=== PATIENT | male | born 1975 | race American Indian/Alaskan Native ===

== ENCOUNTER 2024-05-04 13:38 | Outpatient (CLI) | payer MEDICAID, SELFPAY ==
--- NOTE | 2024-05-04 16:09 | W.CCNOTE ---
Comprehensive Care Clinic Note Note: [facility] [address] [place], [place]? [id number] Initial [facility] Visit Information New or Remote Dx of HIV (1-2 hours) Name: Jens Walker? Date of :? 1975? Primary Care Provider: Unknown, Unknown Date of Service: 05/04/2024 SUBJECTIVE CC: ?We moved here from [place] because the heat and humidity made it hard for me to breath. The sepsis I got when I was diagnosed with HIV killed my lungs and damaged my heart.? Transmission most likely sexual as he is bi-sexual but the last couple decades has had 2 female partners ? his x- and now his current sig other. Neither are HIV positive HPI: Jens was diagnosed with HIV/AIDS in November 2019 after he lost weight going from 215# to 127# in a matter of a few months. He sought medical care, convinced he had cancer but the tests ?showed nothing?. He had thrush, fatigue, and the weight loss, researched is symptoms on line and bought a home HIV test. It was immediately positive. He states he remembers his viral load being over 500,000 and his T cells were in the single digits. He was started in Biktarvy, developed sepsis, was hospitalized and told he had a 1% chance of living the night, had IV therapy and pulled through. He was left with permanent compromise of his lungs, a cardiac valve problem and CAD requiring 4 stents. He says there are more coronary areas that need stenting. He is taking anticoagulant medication, cardiac, lung medications, and the Biktarvy but will run out of these on Thursday, 4 days from now. He was approved for Medicaid but does not have the number as of yet. Jens tells me he cannot read or write. His sig other assists him with this. He can read numbers. ROS Constitutional: Jens fatigues very easily. He has been able to gain weight and states he feels good at rest. Skin: Denies rash or any open lesions, moles, eruptions Head: Prone to headaches after a fall from a roof sustaining a head and neck injury Eyes: readers Ear/Nose/Throat: Denies issues Mouth/Teeth: Has well-fitting full mouth dentures Neck: Chronic neck pain from injury CV: CAD secondary to injury from sepsis, S/P stents. Says he was told he had a bad valve and will need that replaced at some time. Respiratory: Chronic dyspnea w some audible wheezing at times. Has 3 inhalers and rarely uses the rescue inhaler due to it causing a headache. Had pulmonary function tests done in [place] GI: Denies issues, bowels move well, no reflux, chronic N/V/D : Says he has a weaker stream than years ago but no hesitancy or intermittent stream Musculoskeletal: aching in his hands and sometimes his feet but he says he fractured all of these doing [employer] Endocrine: No H/O elevated blood sugar or other endocrine disease Lymphatic: Denies enlarged lymph nodes Hematologic: Denies unusual bleeding even with the anticoagulants. ?I bleed longer if I get a cut?. H/O ?low Red cells?. Immunologic: Says his T cells are above 200 and he is off Bactrim PJP prophylaxis Psychiatric: Denies, depression, SI/HI Allergies/Sensitivities: NKDA Current Medications: Biktarvy 50/200/25 mg tab, 1 daily Clopidogrel 75 mg tab daily Metoprolol ER 25 mg tab bid Eliquis 5 mg tab bid Rosivastatin 20 mg tab daily Losartan 50 mg tab 1 ? = 75 mg daily Spiriva 2.5 mg 2 puffs daily Albuterol 2 puffs prn ?round powder inhaler that you twist? ? is not taking because it causes headache Past medications Ineffective: Hydrocodone - nausea Past Medical History: Other than injuries, he was always healthy until he became ill that was Dx as AIDS. Became septic and sustained cardiac and lung injuries during that illness and is left with CAD, a cardiac valve issue and lung compromise. Old record will be requested from his prior HIV provider who also was his PCP. 2013 fell off a roof with LOC head injury, C spine compression fractures, fractured 2 floating ribs and punctured a lung Past Surgical History: 4 coronary artery stents Past Psychiatric History: Denies Social History: Lives with his sig other, His mother lives in [facility] and has dementia. ?I?m 3 hours away from her and if she needs me I go?. Place of : [place] Gender: M Racial Distribution: Primary Language: Guyanese Secondary Language(s): None Current [facility], State of Residence: [place], [place] Marital Status: Sig other who he considers his Family Size: 2 Pets: dog Housing: owns his home Incarceration History: none History: none Highest Grade Completed: 9 ? Able to read? Denies Employment: None ? 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 Income(s)/Means of Financial Support: Sig other works ? 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 Health Insurance: Approved for [place] Medicaid ? awaiting the number ? Other payment source: self, is applying for VMAP ? Coverage Issues: Needs Medicaid number to be able to get his medications Substance Abuse History: ? Tobacco: smoker ? 1 ppd cigarettes - has reduced from 1 /2 ppd and will reduce more ? ETOH: Denies ? Illicit Drug Use: Denies ? Rx Drug Dependence: None Other Psychosocial Considerations: Needs to apply for disability Family History ? Mother: alive ? age 64, dementia ? Father: ? age 40 ? ?bone cancer? Siblings: ? brother who is ETOHic and drug addicted, homeless in [place]. Does keep in contact with him. ? Children: 2 adult sons, Roberto Carlos 25 yo, Yakov 22 yo. ? Grand Parents: , PGM lung cancer ? Extended: ?cancer ? mostly lung? Immunization History ? Tetanus/TDAP: 7 years ago ? Hepatitis A: ? Hepatitis B: ? Flu Vaccine: refuses ? Pneumovax 23: ? Prevnar 13: ? Singrix: NA ? Menactra: NA ? Health Maintenance: unknown Lipids/Glucose: thinks last checked was 10 months ago ID Screenings ? PPD/Quantiferron: unknown OBJECTIVE Height: 5?6? Weight: 200# Temp: 98.0 Pulse: 68 reg Respirations: 16 Blood Pressure: 124/66 General: WDWNL Skin: clear ? professional tattoos Head: NCAT Eyes: PERRL, non-icteric, non-injected, discs flat Ears/Nose: clear Mouth/Teeth: no lesions, dentures fit well Pharynx: clear Neck: supple CV/Pulses: RRR, no murmur heard, no gallop or rubs, 2/4 in all extremities Chest Lungs: scattered wheezes at the bases Abdomen: NABS, ND, BT, No OGM Extremities: FROM, no edema Musculoskeletal: No deformities Neuro: gait strong and steady, no tremor, tics : NE Rectal: NE Lymphatic: No enlarged node palpable Psychiatric: - appearance: Well groomed - eye contact: good - attitude: cooperative - speech: clear, coherent w normal pressure - affect: normal - mood: euthymic - memory: short term intact, 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 HIV/AIDS ? Blood work drawn today for CBCD, CMP, HIV1 RNA PCR, quantitative, CD4 immunodeficency panel, HBV sAB & c AB, HCV AB. He will sign a DWAIN for old records including lab results. Will call in the medication RXs to [facility] in [place], [place]. I will contact him wit his lab results and the date for F/U. visit scheduled: Will arrange for him to have a visit with Dr. Phan in May Release of Records: form give to be completed and mailed to [place] provider. Social Work/Psychiatry referral: Is connected with [place] [facility] CAD, Lung disease ? Will call in a month of his other medications until he can establish care with a PCP here and get his other medications long-term with F/U and referrals as needed. Provider of Care:? Estefanía Au, MSN, COIL REWIND MACHINE OPERATOR
== END 2024-05-04 13:39 | disposition home or self-care (01) ==
LOC: CCC 13:44
PROVIDERS: Visit Provider Nurse Practitioner Family
DX: B20 Human immunodeficiency virus [HIV] disease (principal); Z79.899 Other long term (current) drug therapy
CPT/HCPCS: 99205

== ENCOUNTER 2024-05-04 14:47 | Outpatient (CLI) | payer MEDICAID, SELFPAY ==
[2024-05-04 13:54] LABS: Abs Immature Grans 0.02 10^3/uL (0.0-0.06); Absolute Basophil Count 0.04 10^3/uL (0.0-0.2); Absolute Eosinophil Count 0.21 10^3/uL (0.0-0.7); Absolute Lymphocyte Count 3.07 10^3/uL (1.2-3.4); Absolute Monocyte Count 0.76 10^3/uL (0.1-0.8); Absolute Neutrophil Count 4.47 10^3/uL (1.2-6.7); Basophils % 0.5 %; Eosinophils % 2.5 %; HCT 44.4 % (40.0-50.0); HGB 15.5 g/dL (13.5-17.5); Immature Grans % 0.2 %; Lymphocytes % 35.8 %; MCH 31.3 pg (27.0-33.0); MCHC 34.9 % (32.0-36.0); MCV 90 fL (80-95); MPV 9.4 fL (8.0-11.0); Monocytes % 8.9 %; Neutrophils % 52.1 %; Platelet Count 228 10^3/uL (130-400); RBC 4.96 10^6/uL (4.36-5.78); RDW 13.5 % (11.8-14.1); RDW-SD 44.2 fL; WBC 8.57 10^3/uL (4.4-10.8)
[2024-05-04 14:30] LABS: ALT 22 U/L (16-63); AST 17 U/L (15-37); Albumin 3.5 g/dL (3.4-5.0); Alkaline Phosphatase 151 U/L (46-116); Anion Gap 8.2 mmol/L (3-11); BUN 9 mg/dL (7-18); Bilirubin, Total 0.23 mg/dL (0.2-1.0); CO2 25.8 mmol/L (21.0-32.0); CREATININE 1.1 mg/dL (0.70-1.30); Calcium 8.7 mg/dL (8.5-10.1); Chloride 105 mmol/L (98-107); Estimated GFR 83.32 (mL/min/1.73m2); Glucose 102 mg/dL (74-106); Sodium 139 mmol/L (136-145); Total Protein 7.6 g/dL (6.4-8.2)
[2024-05-04 23:02] LABS: Hepatitis B Surface Ag Negative (Negative)
[2024-05-04 23:40] LABS: Hep B Core Antibody Negative (Negative)
[2024-05-05 09:48] LABS: Hepatitis C Ab w Rflx HCV PCR Negative (Negative)
[2024-05-05 14:50] LABS: HIV 1 RNA Qualitative Detected Copys/mL (Undetected); HIV 1 RNA Quantitative <20 Copys/mL (Undetected)
[2024-05-05 15:27] LABS: 4/8 Ratio 0.46 (>=0.90); Absolute CD3 2281 Cells/uL (840-2669); Absolute CD8 1569 Cells/uL (154-1097); CD3 75 % (56-84); CD4 24 % (31-64); CD8 52 % (9-39)
== END 2024-05-04 14:48 | disposition home or self-care (01) ==
LOC: LBO 14:49
PROVIDERS: Visit Provider Nurse Practitioner Family
DX: B20 Human immunodeficiency virus [HIV] disease (principal); Z79.899 Other long term (current) drug therapy
CPT/HCPCS: 36415; 80053; 86704; 86803; 87340; 87536; 85025; 86359; 86360

== ENCOUNTER 2024-07-28 08:55 | Outpatient (CLI) | payer MEDICAID, SELFPAY ==
--- NOTE | 2024-07-28 08:45 | RT.EKG_ITS ---
APPROVED REPORT Exam: Resting ECG Reason for Exam: CAD, afib Patient Location: O HR:74 bpm ECG Measurements Heart Rate 74 AXIS MI 149 P 46 QRSd 95 QRS -54 QT 385 T -42 QTc 428 Conclusion Sinus rhythm...normal P axis, V-rate 50- 99 Inferior infarct, age indeterminate...Q>35mS, T neg, II III aVF
== END 2024-07-28 08:56 | disposition home or self-care (01) ==
LOC: DI.CARD 08:56
PROVIDERS: Visit Provider Internal Medicine Cardiovascular Disease
DX: I25.10 Atherosclerotic heart disease of native coronary artery without angina pectoris (principal)
CPT/HCPCS: 93010

== ENCOUNTER 2024-08-11 12:49 | Outpatient (RCR) | payer MEDICAID, SELFPAY | END 2024-09-09 23:59 | disposition home or self-care (01) | LOC: CR 12:49 | PROVIDERS: Visit Provider Internal Medicine Cardiovascular Disease ==

== ENCOUNTER 2024-11-16 13:15 | Emergency (ER) | payer MEDICAID, SELFPAY ==
[2024-11-16] VITALS (10 sets, daily range): BP systolic 130–135; BP diastolic 69–89; PULSE 74–93; RESP 16–20; TEMP 36.7; O2SAT 94–99
--- NOTE | 2024-11-16 14:00 | DI.CT_ITS ---
Exam(s) CT ABDOMEN PELVIS CTA EXAM: CT ABDOMEN PELVIS CTA CLINICAL HISTORY: BRBPR. TECHNIQUE: Imaging Protocol: Axial CT angiography was performed with multi-slice acquisition and m ulti-planar and/or 3D reconstructions. CONTRAST MATERIAL: Intravenous: Omnipaque 350 Contrast volume:100 mL Oral: / no COMPARISON: No exams were available for comparison FINDINGS: Vascular Structures: Celiac [place]:No evidence of stenosis. SMA: No evidence of stenosis. Renal Arteries: No evidence of stenosis. There is a single renal artery perfusing each kidney. Aorta: Irregular calcified and noncalcified plaque beginning below the level of the renal arteries. No aneurysm. No dissection. No significant stenosis. Iliac Arteries: Irregular calcific and noncalcific plaque. Approximate 50 percent stenosis at the or igin of the right common iliac artery. No stenosis on the left. External iliac arteries show scatte red plaque. Common Femoral Arteries: No evidence of stenosis. Soft Tissues:Small bilateral fat containing inguinal hernias. Small amount of fat at the umbilicus. Lung bases:No acute findings. Liver: Normal size. Mild fatty infiltration. No measurable mass. Gallbladder and biliary tract: No evidence of calculi. No gallbladder wall thickening. No biliary di lation. Pancreas: Normal density, no abnormal calcifications or inflammatory process. Spleen: Normal. Kidneys: Normal size, contour and axis. No obstructive uropathy. No masses seen. No evidence of calcu li. Adrenal glands: No masses seen. Bladder: No gross wall thickening. No evidence of calculi. No evidence of mass. Bowel: No obstruction or bowel wall thickening. Appendix normal. Very little stool. No focus of G I bleeding identified. No visible diverticulosis. Peritoneal cavity: No ascites. No focal collection. No mesenteric inflammatory response. Bones: No acute findings. Lymph nodes: Within normal limits. Reproductive: Unremarkable. IMPRESSION: No source of GI bleeding identified. No evidence of bowel wall thickening. No visible diverticulosi s. Atherosclerotic changes of the infrarenal abdominal aorta with proximally 50 percent narrowing of the proximal right common iliac artery. No other significant areas of vascular stenosis. RADIATION DOSE DELIVERED: Total DLP DATA REPOSITORY: All CT scans at this facility are submitted to the National Radiology Data Registry (NRDR) Dose Index Registry (DIR) with the [employer] (ACR). RADIATION OPTIMIZATION: All CT scans at this facility use at least one of these dose optimization te chniques: automated exposure control; mA and/or kV adjustment per patient size (includes targeted exa ms where dose is matched to clinical indication); or iterative reconstruction.
--- NOTE | 2024-11-16 14:16 | ED.GENADUL_ITS ---
Discharge Plan Disposition Patient Disposition: Home Condition: Stable Discharge Details Clinical Impression: BRBPR (bright red blood per rectum) Primary Care Provider: Unknown,Unknown ED Provider: Kimi Jimenez Home Meds and New Rx's Prescriptions: No Action nitroglycerin 0.4 mg tablet, sublingual 0.4 mg sublingual Q5-15M PRN (Reason: chest pain) Qty: 30 4RF Rx Instructions: do not exceed 3 doses per episode aspirin [Adult Aspirin Regimen] 81 mg tablet,delayed release (DR/EC) 81 mg PO DAILY albuterol sulfate [Ventolin HFA] 90 mcg/actuation HFA aerosol inhaler 2 inh inhalation Q6H PRN (Reason: shortness of breath or wheezing) Qty: 8.5 6RF Eliquis 5 mg tablet 5 mg PO BID Qty: 180 3RF clopidogrel 75 mg tablet 75 mg PO DAILY Qty: 90 3RF losartan 50 mg tablet 75 mg PO DAILY Qty: 120 6RF metoprolol succinate 25 mg tablet extended release 24 hr 25 mg PO BID Qty: 180 3RF rosuvastatin [Crestor] 40 mg tablet 40 mg PO DAILY Qty: 90 3RF Biktarvy 50-200-25 mg tablet 1 tab PO DAILY imiquimod 5 % cream in packet 1 applic topical 5XW Spiriva Respimat 2.5 mcg/actuation mist 2 puff inhalation DAILY Zyrtec 10 mg capsule 10 mg PO DAILY PRN Discharge Instructions Instructions: Bloody Stools, Adult ED Additional Instructions: You were seen in the emergency department today for evaluation of bleeding from your rectum. In our department he had a full physical examination performed, had laboratory studies that were reassuring and did not show any sign of anemia or damage to your heart or other organs. Your CT scan today did not show any active ongoing GI bleeding, and was otherwise reassuring. You need to have a colonoscopy performed and this will be done in the outpatient environment. Please contact the general surgery clinic today or early tomorrow to schedule this appointment. You can come back to the emergency department if you have sudden change or worsening of your bleeding, develop chest pain, dizziness, loss of consciousness, or any other symptoms that cause you concern. Thank you for allowing us to be part of your care. Referrals: Aubrey Duvall MD [ [facility] STAFF PHYSICIAN] - [facility] General Mode of arrival: ambulatory . Date/Time Provider Initiated Documentation: 11/16/24 13:37 . Limitations to Documentation: no limitations . Information obtained by: patient, family and old records reviewed . HPI Narrative: HPI: This is a 49-year-old male patient with a past medical history significant for coronary artery disease status post numerous stents, COPD, hypertension, hyperlipidemia, atrial fibrillation on Eliquis, and a history of HIV with undetectable viral loads on HAART. He is presenting for evaluation of 6 months of worsening bright red blood per rectum. He reports that over the last 6 months he has had intermittent bleeding from his rectum, this will occur intermittently and then resolved for several days. It is painless, associated with feelings of fatigue and shortness of breath when it occurs. The patient reports that he has had worsening of his rectal bleeding, with large volume and clots. He has a sensation that he needs to stool and will pass only blood and clots. It is bright red, remains painless that he has noted some abdominal bloating. He is most concerned about colon cancer, as he has noted changes in the size of his stool that are now very narrow and short like Tootsie Roll's. He states that he has never had a colonoscopy, has been taking all of his blood thinners and medications as prescribed, does feel slightly winded and fatigued. He is not experiencing any pain, has not had fevers, nausea or vomiting, or dysuria. Exam: Gen: Awake and alert, in no apparent distress HEENT: Non-icteric sclera Neck: Supple Lungs: No apparent respiratory distress, normal respiratory effort. CV: Appears well perfused, heart with regular rate and rhythm, strong distal pu lses Abdomen: Non-distended, nontender to palpation without rigidity, rebound, or guarding Rectal: Exam performed under the supervision of ZENA Andrade, revealing a nonthrombosed external hemorrhoid, a very small amount of bright red blood on the tip of the glove, no melena, no palpable internal hemorrhoids or masses. MSK: Moves 4 extremities without apparent limitation in ROM Skin: Visualized skin without rashes, cyanosis. Neuro: Normal Gait, no obvious focal deficits or facial asymmetry. Speaks in full, clear sentences. Psych: Appropriate for situation. MDM: This is a 49-year-old male patient presenting for evaluation of bright red blood per rectum. My differential includes but is not limited to internal hemorrhoid, colon cancer, diverticulosis, AVM, coagulopathy/medication effect, anemia, dehydration, kidney injury, metabolic derangement. The patient has no abdominal pain to significantly increase my concern for mesenteric ischemia, gastritis/PUD. He has no fevers and no veils in the home is sick, and he is well-controlled on his HIV medication and I have a lower concern for infectious or pathogenic diarrhea/dysentery. We will obtain laboratory studies to include CBC, CMP, magnesium, troponin, INR, lactate, and type and screen. I will obtain a CTA of the abdomen and pelvis. ED Course: I independently interpreted the laboratory studies, which show no significant leukocytosis, anemia, or thrombocytopenia. The chemistry panel is without evidence of electrolyte abnormality, kidney dysfunction, or liver injury. INR is not elevated, lactate is low, troponin negative and without delta change on 1 hour recheck. I reviewed the patient's CT scan, as well as the radiology read which shows no evidence of active GI bleeding, diverticulosis, large mass, or other abnormalities. I did reach out to general surgery as I do feel that this patient would benefit from expedited colonoscopy, and they will ensure that he is put on the schedule in the outpatient environment. At this time, the patient has had a full medical evaluation and is safe for discharge to home. They are hemodynamically stable, ambulatory, and tolerating PO. They are understanding of the follow-up plan and return precautions. They left our facility without incident. Kimi Jimenez MD Related Data Home Medications ?Medication ?Instructions ?Recorded ?Confirmed bictegravir 50 mg-emtricitabine 1 tab PO DAILY 07/14/24 11/16/24 200 mg-tenofovir alafenam 25 mg tablet (Biktarvy) cetirizine 10 mg capsule (Zyrtec) 10 mg PO DAILY PRN 07/14/24 11/16/24 imiquimod 5 % topical cream packet 1 applic topical 5XW 07/14/24 11/16/24 tiotropium bromide 2.5 2 puff inhalation DAILY 07/14/24 11/16/24 mcg/actuation mist for inhalation (Spiriva Respimat) albuterol sulfate 90 mcg/actuation 2 inh inhalation Q6H PRN shortness 07/28/24 11/16/24 aerosol inhaler (Ventolin HFA) of breath or wheezing #8.5 grams apixaban 5 mg tablet (Eliquis) 5 mg PO BID #180 tabs 07/28/24 11/16/24 aspirin 81 mg tablet,delayed 81 mg PO DAILY 07/28/24 11/16/24 release (Adult Aspirin Regimen) clopidogrel 75 mg tablet 75 mg PO DAILY #90 tabs 07/28/24 11/16/24 losartan 50 mg tablet 75 mg (1.5 x 50 mg) PO DAILY #120 07/28/24 11/16/24 tabs metoprolol succinate 25 mg 25 mg PO BID #180 tabs 07/28/24 11/16/24 tablet,extended release 24 hr rosuvastatin 40 mg tablet (Crestor) 40 mg PO DAILY #90 tabs 07/28/24 11/16/24 nitroglycerin 0.4 mg sublingual 0.4 mg sublingual Q5-15M PRN chest 10/27/24 11/16/24 tablet pain #30 tabs Previous Rx's ?Medication ?Instructions ?Recorded albuterol sulfate 90 mcg/actuation 2 inh inhalation Q6H PRN shortness 07/28/24 aerosol inhaler (Ventolin HFA) of breath or wheezing #8.5 grams apixaban 5 mg tablet (Eliquis) 5 mg PO BID #180 tabs 07/28/24 clopidogrel 75 mg tablet 75 mg PO DAILY #90 tabs 07/28/24 losartan 50 mg tablet 75 mg (1.5 x 50 mg) PO DAILY #120 07/28/24 tabs metoprolol succinate 25 mg 25 mg PO BID #180 tabs 07/28/24 tablet,extended release 24 hr rosuvastatin 40 mg tablet (Crestor) 40 mg PO DAILY #90 tabs 07/28/24 nitroglycerin 0.4 mg sublingual 0.4 mg sublingual Q5-15M PRN chest 10/27/24 tablet pain #30 tabs Allergies Allergy/AdvReac Type Severity Reaction Status Date / Time No Known Allergies Allergy Verified 11/16/24 13:37 General Stated Complaint: Abd Prob GIACOMO: 3 Course Vital Signs Vital signs: Vital Signs Temperature 36.7 C 11/16/24 13:32 Pulse 93 H 11/16/24 13:32 Respiratory Rate 20 11/16/24 13:32 Blood Pressure 135/89 11/16/24 13:32 Pulse Oximetry 94 11/16/24 13:32 Temperature 36.7 C 11/16/24 14:04 Temperature Source Tympanic 11/16/24 14:04 Pulse 93 H 11/16/24 14:04 Respiratory Rate 20 11/16/24 14:04 Blood Pressure 135/89 11/16/24 14:04 Pulse Oximetry 94 11/16/24 14:04 Oxygen Delivery Method Room Air 11/16/24 14:04 Oxygen Flow Rate 0 11/16/24 14:04 Pain Level 0 11/16/24 14:04 Medical Decision Making Quality:SDOH Health Related Social Needs: No Data to Display PFSH All Active Problems (Updated 11/16/24 @ 16:29 by Kimi Jimenez MD) BRBPR (bright red blood per rectum) (Acute) ST elevation (STEMI) myocardial infarction involving right coronary artery (Acute) 06/23/24 at [facility] stenting to RCA RH COPD (chronic obstructive pulmonary disease) (Chronic) Emphysema lung (Acute) Unstable angina (Acute) Hyperlipidemia (Acute) Hypertension (Chronic) Persistent cough (Acute) Human immunodeficiency virus (HIV) (Acute) 10/16/2020 Dyspnea on exertion (Acute) Chronic hypoxemic respiratory failure (Acute) Reactive airway disease (Acute) Allergic rhinitis (Acute) Smoker (Acute) Afib (Chronic) CAD (coronary artery disease) (Chronic) Medical History Myocardial infarct, old 2019 Family History Father Malignant neoplasm of lung Malignant neoplasm of bone Mother Chronic obstructive lung disease Smoker Social History Smoking/Tobacco Use Status: Current every day Tobacco Type: cigarettes Smoking packs per day: 1 Smoking cigarettes per day: 20.0 Years smoked: 30 Smoking pack- years: 30.00 Tobacco: How many years used: 15 Smoking risk assessment performed?: Yes Alcohol Intake: never Drug use: Never Household members: family Number of Children: 2 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
[2024-11-16 14:24] LABS: Abs Immature Grans 0.03 10^3/uL (0.0-0.06); Absolute Basophil Count 0.05 10^3/uL (0.0-0.2); Absolute Eosinophil Count 0.19 10^3/uL (0.0-0.7); Absolute Lymphocyte Count 3.47 10^3/uL (1.2-3.4); Absolute Monocyte Count 0.82 10^3/uL (0.1-0.8); Absolute Neutrophil Count 3.73 10^3/uL (1.2-6.7); Basophils % 0.6 %; Eosinophils % 2.3 %; HCT 47.4 % (40.0-50.0); HGB 16.2 g/dL (13.5-17.5); Immature Grans % 0.4 %; Lactate 1.4 mmol/L (<or=2.0); Lymphocytes % 41.9 %; MCH 30.6 pg (27.0-33.0); MCHC 34.2 % (32.0-36.0); MCV 89 fL (80-95); MPV 9.6 fL (8.0-11.0); Monocytes % 9.9 %; Neutrophils % 44.9 %; Platelet Count 235 10^3/uL (130-400); RDW 13.5 % (11.8-14.1); RDW-SD 44.2 fL; WBC 8.29 10^3/uL (4.4-10.8)
[2024-11-16 14:34] LABS: Bilirubin Negative (Negative); Blood Negative (Negative); Clarity Clear (Clear); Glucose Negative (Negative); Ketones Negative (Negative); Leukocyte Esterase Negative (Negative); Nitrite Negative (Negative); Specific Gravity <= 1.005 (1.005-1.025); Urobilinogen 0.2 mg/dL (Up to 0.2); pH 5.5 (5-8)
[2024-11-16 14:35] LABS: INR 1.1 (0.9-1.1); Prothrombin Time 10.6 sec (9.1-11.1)
[2024-11-16 14:46] LABS: ALT 36 U/L (16-63); AST 25 U/L (15-37); Albumin 3.8 g/dL (3.4-5.0); Alkaline Phosphatase 155 U/L (46-116); Anion Gap 8.3 mmol/L (3-11); BUN 7 mg/dL (7-18); Bilirubin, Total 0.3 mg/dL (0.2-1.0); CO2 28.7 mmol/L (21.0-32.0); CREATININE 1.1 mg/dL (0.70-1.30); Calcium 9.6 mg/dL (8.5-10.1); Chloride 105 mmol/L (98-107); Estimated GFR 82.81 (mL/min/1.73m2); Glucose 85 mg/dL (74-106); Lipase 40 U/L (<78); Magnesium 1.9 mg/dL; Potassium 3.8 mmol/L (3.5-5.1); Sodium 142 mmol/L (136-145); Total Protein 8.2 g/dL (6.4-8.2); Troponin I 18 ng/L (<or=76)
[2024-11-16 15:43] LABS: Troponin I 20 ng/L (<or=76)
[2024-11-16] MEDS: Normal Saline - Diluent 50 ML VIAL IJ (15:50)
[2024-11-16] MEDS: Omnipaque 350 MG/ML 100 ML BTL IJ (15:51)
== END 2024-11-16 16:34 | disposition home or self-care (01) ==
PROVIDERS: Emergency Provider Emergency Medicine
DX: K62.5 Hemorrhage of anus and rectum (principal); Z79.01 Long term (current) use of anticoagulants
CPT/HCPCS: 36415; 80053; 83690; 86850; 86900; 86901; 99285; 74174; 81003; 83605; 83735; 84484; 85025; 85610; 99283; J3490

== ENCOUNTER 2024-11-25 10:54 | Outpatient (CLI) | payer MEDICAID, SELFPAY ==
[2024-11-25 10:55] LABS: Abs Immature Grans 0.04 10^3/uL (0.0-0.06); Absolute Basophil Count 0.05 10^3/uL (0.0-0.2); Absolute Eosinophil Count 0.18 10^3/uL (0.0-0.7); Absolute Lymphocyte Count 2.72 10^3/uL (1.2-3.4); Absolute Neutrophil Count 5.56 10^3/uL (1.2-6.7); Basophils % 0.5 %; Eosinophils % 1.9 %; HCT 45.5 % (40.0-50.0); HGB 15.4 g/dL (13.5-17.5); Immature Grans % 0.4 %; Lymphocytes % 28.8 %; MCH 30.5 pg (27.0-33.0); MCHC 33.8 % (32.0-36.0); MCV 90 fL (80-95); MPV 9.5 fL (8.0-11.0); Monocytes % 9.5 %; Neutrophils % 58.9 %; Platelet Count 213 10^3/uL (130-400); RBC 5.05 10^6/uL (4.36-5.78); RDW 13.9 % (11.8-14.1); RDW-SD 45.7 fL; WBC 9.45 10^3/uL (4.4-10.8)
[2024-11-25 11:19] LABS: ALT 30 U/L (16-63); AST 22 U/L (15-37); Albumin 3.5 g/dL (3.4-5.0); Alkaline Phosphatase 132 U/L (46-116); Anion Gap 9.1 mmol/L (3-11); BUN 9 mg/dL (7-18); Bilirubin, Total 0.4 mg/dL (0.2-1.0); CO2 24.9 mmol/L (21.0-32.0); CREATININE 1.1 mg/dL (0.70-1.30); Calcium 9.2 mg/dL (8.5-10.1); Chloride 107 mmol/L (98-107); Estimated GFR 82.81 (mL/min/1.73m2); Glucose 92 mg/dL (74-106); Potassium 4.2 mmol/L (3.5-5.1); Sodium 141 mmol/L (136-145); Total Protein 7.7 g/dL (6.4-8.2)
[2024-11-28 12:37] LABS: 4/8 Ratio 0.48 (>=0.90); Absolute CD3 2035 Cells/uL (840-2669); Absolute CD8 1385 Cells/uL (154-1097); CD3 71 % (56-84); CD4 23 % (31-64); CD8 48 % (9-39)
[2024-11-28 12:51] LABS: HIV 1 RNA Qualitative Detected Copys/mL (Undetected); HIV 1 RNA Quantitative 32 Copys/mL (Undetected)
== END 2024-11-25 10:55 | disposition home or self-care (01) ==
PROVIDERS: PCP Family Medicine; Visit Provider Nurse Practitioner Family
DX: B20 Human immunodeficiency virus [HIV] disease (principal); Z79.899 Other long term (current) drug therapy
CPT/HCPCS: 36415; 80053; 87536; 85025; 86359; 86360

== ENCOUNTER 2024-12-08 20:22 | Emergency (ER) | payer MEDICAID, SELFPAY ==
[2024-12-08] VITALS (7 sets, daily range): BP systolic 93–145; BP diastolic 52–94; PULSE 74–84; RESP 11–23; TEMP 36.4; O2SAT 89–98
--- NOTE | 2024-12-08 20:15 | RT.EKG_ITS ---
APPROVED REPORT Exam: Resting ECG Reason for Exam: chest pain Patient Location: E HR:84 bpm ECG Measurements Heart Rate 84 AXIS ME 161 P 35 QRSd 100 QRS -55 QT 368 T 13 QTc 436 Conclusion Sinus rhythm...normal P axis, V-rate 60- 99 Inferior infarct, old...Q >35mS, II III aVF
--- NOTE | 2024-12-08 20:29 | ED.GENADUL_ITS ---
Discharge Plan Disposition Patient Disposition: Home Condition: Stable Discharge Details Clinical Impression: Chest pain of uncertain etiology, Bronchitis Primary Care Provider: Hiren Roman ED Provider: Hector Romero Home Meds and New Rx's Prescriptions: New azithromycin 250 mg tablet 250 mg PO DAILY 4 Days Qty: 4 0RF Rx Instructions: start on day 2 of therapy amoxicillin-pot clavulanate 875-125 mg tablet 1 tab PO BID 5 Days Qty: 9 0RF Continued nitroglycerin 0.4 mg tablet, sublingual 0.4 mg sublingual Q5-15M PRN (Reason: chest pain) Qty: 30 4RF Rx Instructions: do not exceed 3 doses per episode aspirin [Adult Aspirin Regimen] 81 mg tablet,delayed release (DR/EC) 81 mg PO DAILY albuterol sulfate [Ventolin HFA] 90 mcg/actuation HFA aerosol inhaler 2 inh inhalation Q6H PRN (Reason: shortness of breath or wheezing) Qty: 8.5 6RF Eliquis 5 mg tablet 5 mg PO BID Qty: 180 3RF clopidogrel 75 mg tablet 75 mg PO DAILY Qty: 90 3RF losartan 50 mg tablet 75 mg PO DAILY Qty: 120 6RF metoprolol succinate 25 mg tablet extended release 24 hr 25 mg PO BID Qty: 180 3RF rosuvastatin [Crestor] 40 mg tablet 40 mg PO DAILY Qty: 90 3RF Biktarvy 50-200-25 mg tablet 1 tab PO DAILY imiquimod 5 % cream in packet 1 applic topical 5XW Spiriva Respimat 2.5 mcg/actuation mist 2 puff inhalation DAILY Zyrtec 10 mg capsule 10 mg PO DAILY PRN Discharge Instructions Instructions: Azithromycin (Systemic), Amoxicillin and Clavulanate, Chest Pain, Adult ED Additional Instructions: You were seen in the emergency department for your chest pain onset last night with 6 out of 10 pressure reported improved this morning, your EKG shows no signs of ischemia, your cardiac workup is negative, your chest x-ray shows bronchitis which we are going to treat with antibiotics, it is likely that you could have been having some demand ischemia or in layman's terms your heart is asking for more oxygen than it is getting. 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 Referrals: [facility] [Provider Group] Hiren Roman MD [Primary Care Provider] - [facility] General Date/Time Provider Initiated Documentation: 12/08/24 20:29 . HPI Narrative: 49 year-old male presents to ED today by POV/ambulating with his with a chief complaint of chest pressure/heaviness with onset last night- rated 6/10 last night, persistent all day today to a 2-3. Quality described as chest pressure, denies overt pain, endorses a cough lately, no radiation to hem optysis, fever, diaphoresis, dizziness, endorsed some abnormal breathing but not short on breath, denies radiation to jaw/neck/arm. Severity is described as 2- 3/10. Palliating factors include did not try his nitroglycerin, took a 81mg aspirin today. Provoking factors include nothing specific- was sleeping at onset. Events leading up to the incident/Associated Symptoms: Patient has seen [facility], just moved to the area this year from [place]. Patient is anticoagulated. Related Data Home Medications ?Medication ?Instructions ?Recorded ?Confirmed bictegravir 50 mg-emtricitabine 1 tab PO DAILY 07/14/24 12/08/24 200 mg-tenofovir alafenam 25 mg tablet (Biktarvy) cetirizine 10 mg capsule (Zyrtec) 10 mg PO DAILY PRN 07/14/24 12/08/24 imiquimod 5 % topical cream packet 1 applic topical 5XW 07/14/24 12/08/24 tiotropium bromide 2.5 2 puff inhalation DAILY 07/14/24 12/08/24 mcg/actuation mist for inhalation (Spiriva Respimat) albuterol sulfate 90 mcg/actuation 2 inh inhalation Q6H PRN shortness 07/28/24 12/08/24 aerosol inhaler (Ventolin HFA) of breath or wheezing #8.5 grams apixaban 5 mg tablet (Eliquis) 5 mg PO BID #180 tabs 07/28/24 12/08/24 aspirin 81 mg tablet,delayed 81 mg PO DAILY 07/28/24 12/08/24 release (Adult Aspirin Regimen) clopidogrel 75 mg tablet 75 mg PO DAILY #90 tabs 07/28/24 12/08/24 losartan 50 mg tablet 75 mg (1.5 x 50 mg) PO DAILY #120 07/28/24 12/08/24 tabs metoprolol succinate 25 mg 25 mg PO BID #180 tabs 07/28/24 12/08/24 tablet,extended release 24 hr rosuvastatin 40 mg tablet (Crestor) 40 mg PO DAILY #90 tabs 07/28/24 12/08/24 nitroglycerin 0.4 mg sublingual 0.4 mg sublingual Q5-15M PRN chest 10/27/24 12/08/24 tablet pain #30 tabs amoxicillin 875 mg-potassium 1 tab PO BID 5 days #9 tabs 12/08/24 clavulanate 125 mg tablet azithromycin 250 mg tablet 250 mg PO DAILY 4 days #4 tabs 12/08/24 Previous Rx's ?Medication ?Instructions ?Recorded albuterol sulfate 90 mcg/actuation 2 inh inhalation Q6H PRN shortness 07/28/24 aerosol inhaler (Ventolin HFA) of breath or wheezing #8.5 grams apixaban 5 mg tablet (Eliquis) 5 mg PO BID #180 tabs 07/28/24 clopidogrel 75 mg tablet 75 mg PO DAILY #90 tabs 07/28/24 losartan 50 mg tablet 75 mg (1.5 x 50 mg) PO DAILY #120 07/28/24 tabs metoprolol succinate 25 mg 25 mg PO BID #180 tabs 07/28/24 tablet,extended release 24 hr rosuvastatin 40 mg tablet (Crestor) 40 mg PO DAILY #90 tabs 07/28/24 nitroglycerin 0.4 mg sublingual 0.4 mg sublingual Q5-15M PRN chest 10/27/24 tablet pain #30 tabs amoxicillin 875 mg-potassium 1 tab PO BID 5 days #9 tabs 12/08/24 clavulanate 125 mg tablet azithromycin 250 mg tablet 250 mg PO DAILY 4 days #4 tabs 12/08/24 Allergies Allergy/AdvReac Type Severity Reaction Status Date / Time No Known Allergies Allergy Verified 11/16/24 13:37 General Stated Complaint: Chest Pain GIACOMO: 3 Review of Systems All systems reviewed & are unremarkable except as noted in HPI and below Exam Narrative Exam Narrative: GENERAL APPEARANCE: Well-nourished, non-toxic, awake and alert, atraumatic, no acute distress. SKIN: Warm, pink, dry, intact, without rashes/lesions/ulcerations. HEAD: Normocephalic, atraumatic, normal hair distribution for gender/age. EYES: Normal conjunctiva, no exudates on lids/lashes. ENT: Nares patent, no circumoral cyanosis, no facial swelling NECK: Supple, trachea midline, painless cervical ROM. LUNGS/CHEST: Lungs CTA bilaterally -no rhonchi/rales/wheezes diffusely, non- labored respirations, normal A/P diameter, symmetrical expansion, no chest wall deformity HEART (CV/PV): Regular rate and rhythm without murmur, no peripheral edema, no JVD. ABDOMEN: Soft, non-distended, no guarding, no tenderness, no CVA tenderness to percussion bilaterally. MSK: Normal ROM, no swelling/deformity to bilateral UEs or LEs, moving all extremities without weakness, no cyanosis, spine midline without tenderness, normal curvature. NEURO: Mental Status AAOx4 - alert to person, place, time, events No facial droop, no forehead involvement. Motor: No focal weakness - strength 5/5 in bilateral UEs and LEs, proximal and distal, symmetric. Sensory: sensation intact to light touch globally. Gait normal: patient ambulated without ataxia into ED room. PSYCH: euthymic, cooperative, pleasant, appropriate speech Course Vital Signs Vital signs: Vital Signs Temperature 36.4 C 12/08/24 20:24 Pulse 84 12/08/24 20:24 Respiratory Rate 16 12/08/24 20:24 Blood Pressure 138/94 H 12/08/24 20:24 Pulse Oximetry 98 12/08/24 20:24 Temperature 36.4 C 12/08/24 20:24 Pulse 84 12/08/24 20:24 Respiratory Rate 16 12/08/24 20:24 Blood Pressure 138/94 H 12/08/24 20:24 Pulse Oximetry 98 12/08/24 20:24 Pain Level 3 12/08/24 20:24 Medical Decision Making This dictation utilizes [id number] dictation software and may contain unedited grammatical errors. 49 year-old male presents to ED today by POV/ambulating with his with a chief complaint of chest pressure/heaviness with onset last night- rated 6/10 last night, persistent all day today to a 2-3. Quality described as chest pressure, denies overt pain, endorses a cough lately, no radiation to hemoptysis, fever, diaphoresis, dizziness, endorsed some abnormal breathing but not short on breath, denies radiation to jaw/neck/arm. Severity is described as 2-3/10. Palliating factors include did not try his nitroglycerin, took a 81mg aspirin today. Provoking factors include nothing specific- was sleeping at onset. Events leading up to the incident/Associated Symptoms: Patient has seen [facility], just moved to the area this year from [place]. Patients' medical history: Myocardial infarction, history of STEMI in June 2024, COPD, emphysema, hypertension, HIV, chronic respiratory failure, A-fib, coronary artery disease. Family and social history: Noncontributory. Pertinent exam findings / vital signs include benign cardiopulmonary exam, neuro intact, benign abdomen. Differential / pathologies of concern include ACS, angina, PE, bronchitis, pleurisy. Diagnostic studies of: -CBC, CMP, D-dimer, troponin, BNP, lipase, EKG, chest x-ray. - CBC shows no leukocytosis, no anemia - CMP shows no actionable abnormality - D-dimer is 514, years criteria negative, - troponin negative - BNP negative - lipase negative - EKG shows normal sinus rhythm without ST changes, slight left axis deviation, good R wave progression -Chest x-ray shows bronchitis Interventions of: -Given 243 mg chewable ASA and nitro with improvement, unsure if it was related to these medications versus just time in the ER, given starting dose of Augmentin and azithromycin with Rx is sent. ED Course/Assessment/Plan: 49-year-old male presents with chest heaviness since last night, he has significant cardiac history as well as HIV and COPD, he endorses a cough lately, his pain was 6 out of 10 last night is unclear why he did not present at that time. His cardiac workup is negative but his heart score is moderate I did discuss with him possibly admitting him for observation but he prefers to go home and follow-up outpatient. Troponin is negative with reliable onset, chest x-ray shows bronchitis, D-dimer is 5.4 but years criteria negative not warranting CTA he is anticoagulated. EKG is reassuring, I counseled the patient on strict return criteria whenever he has these types of chest heaviness symptoms especially shortness of breath, feelings of near syncope or diaphoresis. Findings not consistent with acute AZ, PE, heart failure, pancreatitis, pne umonia or hypoxic respiratory failure. Disposition of Chest Pain of Uncertain Etiology, Bronchitis. Patient verbalized understanding of the plan and return to ED criteria and engaged in shared decision making. Medical Records Medical records reviewed: Yes I reviewed the patient's medical records. Imaging Data Radiologic Study: Attestation: I personally reviewed and interpreted this imaging study as follows: Imaging: X-Ray Radiologist's impression: Exam: XR Chest Exam date and time: 12/08/2024 21:01 Age: 49 years old Clinical indication: Pain; Chest pressure TECHNIQUE: Imaging protocol: Radiologic exam of the chest. Views: 2 views. COMPARISON: CT ABDOMEN PELVIS CTA 11/16/2024 15:43 FINDINGS: Lungs: Mild central interstitial thickening. No airspace consolidation. Pleural spaces: No pleural effusion. No pneumothorax. Heart/Mediastinum: No cardiomegaly. Bones/joints: No acute fracture. IMPRESSION: Interstitial disease suggesting bronchitis. Dictated and Authenticated by: Tayler Ladd MD. Lab Data Lab results reviewed: Yes I reviewed the patient's lab results. Labs: Laboratory Tests Range/Units 12/08/24 20:40 WBC (4.4-10.8) 10^3/uL 9.49 RBC (4.36-5.78) 10^6/uL 4.89 Hgb (13.5-17.5) g/dL 15.2 Hct (40.0-50.0) % 44.2 MCV (80-95) fL 90 MCH (27.0-33.0) pg 31.1 MCHC (32.0-36.0) % 34.4 RDW (11.8-14.1) % 13.8 Plt Count (130-400) 10^3/uL 243 MPV (8.0-11.0) fL 9.6 Immature Gran % % 0.4 Neutrophils % % 49.1 Lymphocytes % % 36.9 Monocytes % % 10.7 Eosinophils % % 2.2 Basophils % % 0.7 Nucleated RBC % (0.0-0.3) % 0.0 Absolute Neutrophils (1.2-6.7) 10^3/uL 4.65 Absolute Lymphocytes (1.2-3.4) 10^3/uL 3.50 H Absolute Monocytes (0.1-0.8) 10^3/uL 1.02 H Absolute Eosinophils (0.0-0.7) 10^3/uL 0.21 Absolute Basophils (0.0-0.2) 10^3/uL 0.07 D-Dimer (<500) ng/mlFEU 514 H Sodium (136-145) mmol/L 136 Potassium (3.5-5.1) mmol/L 4.0 Chloride (98-107) mmol/L 102 Carbon Dioxide (21.0-32.0) mmol/L 27.2 Anion Gap (3-11) mmol/L 6.8 BUN (7-18) mg/dL 13 Creatinine (0.70-1.30) mg/dL 1.2 Est GFR (CKD-EPI 2020) (mL/min/1.73m2) 74.60 Glucose (74-106) mg/dL 105 Calcium (8.5-10.1) mg/dL 9.1 Total Bilirubin (0.2-1.0) mg/dL 0.4 AST (15-37) U/L 36 ALT (16-63) U/L 30 Alkaline Phosphatase (46-116) U/L 155 H Troponin I (<or=76) ng/L 15 NT-Pro-B Natriuret Pep (<300) pg/mL 91 Total Protein (6.4-8.2) g/dL 7.8 Albumin (3.4-5.0) g/dL 3.7 Lipase (<78) U/L 67 Quality:[facility] Health Related Social Needs: No Data to Display PFSH All Active Problems (Updated 12/08/24 @ 21:55 by SHOAIB Hernadez) Bronchitis (Acute) Chest pain of uncertain etiology (Acute) BRBPR (bright red blood per rectum) (Acute) ST elevation (STEMI) myocardial infarction involving right coronary artery (Acute) 06/23/24 at [facility] stenting to RCA RH COPD (chronic obstructive pulmonary disease) (Chronic) Emphysema lung (Acute) Unstable angina (Acute) Hyperlipidemia (Acute) Hypertension (Chronic) Persistent cough (Acute) Human immunodeficiency virus (HIV) (Acute) 10/16/2020 Dyspnea on exertion (Acute) Chronic hypoxemic respiratory failure (Acute) Reactive airway disease (Acute) Allergic rhinitis (Acute) Smoker (Acute) Afib (Chronic) CAD (coronary artery disease) (Chronic) Medical History Myocardial infarct, old 2019 Family History Father Malignant neoplasm of lung Malignant neoplasm of bone Mother Chronic obstructive lung disease Smoker Social History Smoking/Tobacco Use Status: Current every day Tobacco Type: cigarettes Smoking packs per day: 1 Smoking cigarettes per day: 20.0 Years smoked: 30 Smoking pack- years: 30.00 Tobacco: How many years used: 15 Smoking risk assessment performed?: Yes Alcohol Intake: never Drug use: Never Household members: family Number of Children: 2 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 Do you feel safe at home: Yes Do you feel safe in your relationship?: Yes
--- NOTE | 2024-12-08 20:45 | DI.RAD_ITS ---
Exam(s) XR CHEST 2V PA LATERAL EXAM: XR CHEST 2V PA LATERAL CLINICAL HISTORY: chest pressure TECHNIQUE: 2D digital imaging was performed. Two views. COMPARISON: No exams were available for comparison FINDINGS: HEART: Normal size. Coronary artery stent Aorta: Not dilated. PULMONARY VASCULATURE: Normal. MEDIASTINUM: Unremarkable. LUNGS: No focal area of consolidation. Mild peribronchial thickening could indicate bronchitis. PLEURAL SPACE: No pleural effusion or pneumothorax. BONE:Unremarkable for age. SOFT TISSUES: Unremarkable. IMPRESSION: Peribronchial thickening could indicate bronchitis. No focal pneumonia. DATA REPOSITORY: RADIATION DOSE DELIVERED:
[2024-12-08 21:00] LABS: Abs Immature Grans 0.04 10^3/uL (0.0-0.06); Absolute Basophil Count 0.07 10^3/uL (0.0-0.2); Absolute Eosinophil Count 0.21 10^3/uL (0.0-0.7); Absolute Monocyte Count 1.02 10^3/uL (0.1-0.8); Absolute Neutrophil Count 4.65 10^3/uL (1.2-6.7); Basophils % 0.7 %; Eosinophils % 2.2 %; HCT 44.2 % (40.0-50.0); HGB 15.2 g/dL (13.5-17.5); Immature Grans % 0.4 %; Lymphocytes % 36.9 %; MCH 31.1 pg (27.0-33.0); MCHC 34.4 % (32.0-36.0); MCV 90 fL (80-95); MPV 9.6 fL (8.0-11.0); Monocytes % 10.7 %; Neutrophils % 49.1 %; Platelet Count 243 10^3/uL (130-400); RBC 4.89 10^6/uL (4.36-5.78); RDW 13.8 % (11.8-14.1); RDW-SD 45.5 fL; WBC 9.49 10^3/uL (4.4-10.8)
[2024-12-08] MEDS: Aspirin 81 MG CHEW 243 MG CH (21:00)
[2024-12-08] MEDS: nitroGLYcerin 0.4 MG TAB SL (21:01)
[2024-12-08 21:25] LABS: D-Dimer 514 ng/mlFEU (<500)
[2024-12-08 21:26] LABS: ALT 30 U/L (16-63); Albumin 3.7 g/dL (3.4-5.0); Alkaline Phosphatase 155 U/L (46-116); Anion Gap 6.8 mmol/L (3-11); BUN 13 mg/dL (7-18); Bilirubin, Total 0.4 mg/dL (0.2-1.0); CO2 27.2 mmol/L (21.0-32.0); CREATININE 1.2 mg/dL (0.70-1.30); Calcium 9.1 mg/dL (8.5-10.1); Chloride 102 mmol/L (98-107); Glucose 105 mg/dL (74-106); Lipase 67 U/L (<78); NT-proBNP 91 pg/mL (<300); Sodium 136 mmol/L (136-145); Total Protein 7.8 g/dL (6.4-8.2); Troponin I 15 ng/L (<or=76)
--- NOTE | 2024-12-08 21:42 | DI.VRAD_ITS ---
PROCEDURE INFORMATION: Exam: XR Chest Exam date and time: 12/08/2024 21:01 Age: 49 years old Clinical indication: Pain; Chest pressure TECHNIQUE: Imaging protocol: Radiologic exam of the chest. Views: 2 views. COMPARISON: CT ABDOMEN PELVIS CTA 11/16/2024 15:43 FINDINGS: Lungs: Mild central interstitial thickening. No airspace consolidation. Pleural spaces: No pleural effusion. No pneumothorax. Heart/Mediastinum: No cardiomegaly. Bones/joints: No acute fracture. IMPRESSION: Interstitial disease suggesting bronchitis. Dictated and Authenticated by: Tayler Ladd MD. Orderin Heather Young MD
[2024-12-08] MEDS: Amoxicillin 875/Clav. 125 TAB PO (22:07)
[2024-12-08] MEDS: Azithromycin 250 MG TAB 500 MG PO (22:07)
[2024-12-08 22:10] LABS: AST 36 U/L (15-37)
== END 2024-12-08 22:11 | disposition home or self-care (01) ==
PROVIDERS: Emergency Provider Physician Assistant; PCP Family Medicine
DX: J40 Bronchitis, not specified as acute or chronic (principal); R07.9 Chest pain, unspecified; I10 Essential (primary) hypertension; E78.5 Hyperlipidemia, unspecified; I48.91 Unspecified atrial fibrillation; I25.10 Atherosclerotic heart disease of native coronary artery without angina pectoris; B20 Human immunodeficiency virus [HIV] disease; Z79.01 Long term (current) use of anticoagulants; Z79.02 Long term (current) use of antithrombotics/antiplatelets; F17.210 Nicotine dependence, cigarettes, uncomplicated
CPT/HCPCS: 36415; 80053; 83690; 93005; 99285; 71046; 83880; 84484; 85025; 85379; 93010; 99284

== ENCOUNTER 2025-03-14 03:55 | Outpatient (CLI) | payer OTHER, SELFPAY ==
[2025-03-14] MEDS: Inhaler, Assist Device 1 EACH MC (11:19)
[2025-03-14] MEDS: Levalbuterol HFA 15 GM INH 4 PUFF IH (11:19)
--- NOTE | 2025-03-15 07:39 | W.PFT ---
Date of service: 03/14/25 Time of Service: 10:05 Pulmonary Function Test Result Indications: COPD Impression 1. Good patient effort was noted. ATS standards for reproducibility were met. 2. Spirometry showed moderate obstructive lung disease with an FEV1 of 76% (2.68 L) 3. Following the administration of a bronchodilator there was not a significant response 4. DLCO was 51%, consistent with a moderate defect in alveolar gas exchange
== END 2025-03-14 03:56 | disposition home or self-care (01) ==
PROVIDERS: PCP Nurse Practitioner Family; Visit Provider Internal Medicine Pulmonary Disease
DX: J44.9 Chronic obstructive pulmonary disease, unspecified (principal); Z02.71 Encounter for disability determination
CPT/HCPCS: 94060; 94729

== ENCOUNTER 2025-03-20 01:35 | Outpatient (CLI) | payer OTHER, SELFPAY ==
--- NOTE | 2025-03-20 09:45 | DI.US_ITS ---
APPROVED REPORT EXAM: Comprehensive 2D, Doppler, and color-flow Echocardiogram Patient Location: Out-Patient Plant Facilities Technician: Víctor Mendieta RDCS (AE) Indications: Encounter for disability Other Information Study Quality: Adequate Conclusion Normal left ventricular wall thickness and chamber size. Ejection fraction is 55 to 60%. Wall motion is normal Normal right ventricular size and function Both atria are normal in size Aortic valve is mildly sclerotic and trileaflet with mild regurgitation Wall motion Left Ventricle The left ventricle is normal size. The left ventricular systolic function is normal. The left ventricular ejection fraction is within the normal range. There is normal left ventricular wall thickness. There is normal LV segmental wall motion. There is no ventricular septal defect visualized. LVEF is 55-60%. Right Ventricle The right ventricle is normal size. The right ventricular systolic function is normal. Atria The left atrium size is normal. The right atrium size is normal. The interatrial septum is intact with no evidence for an atrial septal defect. Aortic Valve The aortic valve is mildly sclerotic. Aortic valve is trileaflet. There is no aortic valvular stenosis. Mild aortic regurgitation. Mitral Valve The mitral valve is normal in structure. No evidence of mitral valve stenosis. Trace mitral regurgitation. Tricuspid Valve The tricuspid valve is normal in structure. There is no tricuspid valve stenosis. Trace tricuspid regurgitation. Pulmonic Valve The pulmonary valve is normal in structure. There is no pulmonic valvular stenosis. There is no pulmonic valvular regurgitation. Great Vessels The aortic root is normal in size. The ascending aorta is normal in size. Aortic arch is normal in caliber. IVC is normal in size and collapses >50% with inspiration. Pericardium There is no pericardial effusion. 2D Dimensions IVSD d PLAX 1.22 cm M: 0.6-1.2 Ao Root d 2.66 cm M: 3.1 - 3.7 LVPW d PLAX 1.17 cm M: 0.6 - 1.2 Ao Asc Diam d 3.28 cm M: 2.6 - 3.4 LVID d PLAX 5.40 cm M: 4.2 - 5.8 LVDs 3.72 cm M: 2.5 - 4.0 LV EF Teichholz 58.4 % FS 31.18 % LV EDV (Teich) 141.4 mL LV ESV (Teich) 58.8 mL Stroke Vol Index (Teich) 40.49 M-Mode TAPSE 1.80 cm (M/F) >1.7 Auto EF LV EDV A4C 134.0 mL LV EDV A2C 110.9 mL LV EDV BP 122.7 mL LV ESV A4C 60.8 mL LV ESV A2C 48.6 mL LV ESV BP 54.2 mL LVEF(%) A4C 54.6 % LVEF(%) A2C 56.2 % LVEF(%) BP 55.8 % LV SV A4C 73.2 ml LV SV A2C 62.3 ml LV SV BP 68.5 ml LV CO A4C 4.8 L/min LV CO A2C 3.7 L/min LV CO BP 4.3 L/min HR A4C 65.94 BPM HR A2C 59.61 BPM LV EDV Index (BP) LA Volume LA Length A4C 5.5 cm LA Length A2C 5.5 cm LA Area A4C s 12.26 cm2 LA Area A2C s 14.28 cm2 LA Vol A4C A-L 23.35 mL LA Vol A2C A-L 31.34 mL LA Vol Biplane A-L 27.2 mL LA Vol/BSA A4C A-L LA Vol/BSA A2C A-L LA Vol/BSA BP A-L 13.3 mL/m2 LA Vol A4C MOD 21.5 mL LA Vol A2C MOD 30.0 mL LA Vol BP MOD 25.4 mL RA Volume RA Area A4C 9.0 cm2 RA ESV A4C (A-L) 19.2mL RA Vol/BSA A4C A-L RA Length A4C 3.6 cm RA ESV A4C (MOD) 17.8mL LV Diastology MV E' medial 0.073 (>0.07 m/s) MV E Vmax 0.77 (0.4-1.3 m/s) MV E/E' MED 10.55 (<14) MV A Vmax 0.70 (0.4-1.3 m/s) MV E' lateral 0.105 (>0.1 m/s) E/A Ratio 1.1 MV E/E' LAT 7.33 (<14) MV E' Average 0.089 m/s MV E/E'(average) 8.65 Aortic Valve AoV Vmax 1.18 m/s LVOT Vmax 1.13 m/s AoV Peak Grad 46.0 mmHg LVOT Peak Grad 5.1 mmHg AoV Area (Vmax) 3.50 cm2 LVOT VTI 0.240 m AoV VTI 0.272 m LVOT Mean Grad 2.5 mmHg AoV Mean Maycol. 0.83 m/s LVOT SV 87.80 mL AoV Mean Grad 3.0 mmHg LVOT Diam s 2.15 cm AoV Area (VTI) 3.23 cm2 AV Regurg Peak Gr. 5.60 mmHg Velocity Ratio 0.96 AR Decel Graham 2.8m/sec2 AR DT 1637 msec AR PHT 475 msec AR Vmax 4.65 m/s Mitral Valve MV DT 146 (160-240 msec) Pulmonary Valve PV Vmax 0.70 (0.5-1.5 m/s) RVOT Vmax 0.48 m/s PV Peak Grad 2.0 mmHg RVOT Peak Gr. 0.9 mmHg PV Mean Maycol 0.53 m/s RVOT VTI 0.138 m PV Mean Grad 1.2 mmHg RVOT Mean Gr. 0.7 mmHg
== END 2025-03-20 01:55 ==
LOC: DI 01:36
PROVIDERS: PCP Nurse Practitioner Family; Visit Provider Internal Medicine Cardiovascular Disease
DX: I35.0 Nonrheumatic aortic (valve) stenosis (principal); Z02.71 Encounter for disability determination
CPT/HCPCS: 93306

== ENCOUNTER 2025-04-17 07:47 | Outpatient (CLI) | payer OTHER, SELFPAY | END 2025-04-17 07:48 | disposition home or self-care (01) | LOC: RT 04-18 07:47 | PROVIDERS: PCP Nurse Practitioner Family; Visit Provider Internal Medicine Cardiovascular Disease | DX: Z02.71 Encounter for disability determination (principal); J44.9 Chronic obstructive pulmonary disease, unspecified | CPT/HCPCS: 94060; 94726; 94729 ==

== ENCOUNTER 2025-04-27 17:22 | Outpatient (CLI) | payer MEDICAID, SELFPAY ==
[2025-04-27 11:47] LABS: Abs Immature Grans 0.03 10^3/uL (0.0-0.06); HCT 47.1 % (40.0-50.0); HGB 16.0 g/dL (13.5-17.5); Immature Grans % 0.3 %; MCH 30.2 pg (27.0-33.0); MCHC 34.0 % (32.0-36.0); MCV 89 fL (80-95); MPV 9.2 fL (8.0-11.0); Platelet Count 234 10^3/uL (130-400); RBC 5.29 10^6/uL (4.36-5.78); RDW 13.9 % (11.8-14.1); RDW-SD 45.1 fL; WBC 8.89 10^3/uL (4.4-10.8)
[2025-04-27 12:23] LABS: Calculated LDL 27 mg/dL (<100); Cholesterol 109 mg/dL (<200); HDL Cholesterol 26 mg/dL (>or=40); Triglyceride 280 mg/dL (<150)
[2025-04-27 12:28] LABS: ALT 25 U/L (16-63); AST 19 U/L (15-37); Albumin 3.7 g/dL (3.4-5.0); Alkaline Phosphatase 148 U/L (46-116); Anion Gap 6.8 mmol/L (3-11); BUN 8 mg/dL (7-18); Bilirubin, Total 0.4 mg/dL (0.2-1.0); CO2 29.2 mmol/L (21.0-32.0); Calcium 9.5 mg/dL (8.5-10.1); Chloride 106 mmol/L (98-107); Estimated GFR 74.60 (mL/min/1.73m2); Glucose 96 mg/dL (74-106); Potassium 4.4 mmol/L (3.5-5.1); Sodium 142 mmol/L (136-145); Total Protein 7.9 g/dL (6.4-8.2)
[2025-04-27 13:13] LABS: Hemoglobin A1C 5.8 % (<5.7)
[2025-04-28 15:34] LABS: CD3 73 % (56-84); CD4 23 % (31-64); CD8 49 % (9-39)
[2025-05-01 14:08] LABS: HIV 1 RNA Quantitative 63 Copys/mL (Undetected)
== END 2025-04-27 17:23 | disposition home or self-care (01) ==
LOC: LBO 17:22
PROVIDERS: PCP Nurse Practitioner Family; Visit Provider Nurse Practitioner Family
DX: Z13.1 Encounter for screening for diabetes mellitus (principal); Z13.220 Encounter for screening for lipoid disorders
CPT/HCPCS: 36415; 80053; 80061; 87536; 83036; 85025; 86359; 86360